=== PATIENT | male | born 1995 | race Caucasian/White ===

== ENCOUNTER 2016-11-22 11:57 | Observation (INO) | payer OTHER ==
[2016-11-22] MEDS ORDERED: ONDANSETRON 4 MG/2 ML VIAL IVP ONE (12:12)
--- NOTE | 2016-11-22 12:20 | EDPHY ---
H & P Smoking Status: Current every day smoker Time Seen by Provider: 11/22/16 12:07 HPI/ROS: HPI: Jamil King is a 21 yrs, male who presents with Chief Complaint: abdominal pain Location: RLQ Quality: sharp pain Duration: started 3 hours ago Signs and Symptoms: no fever, no chills, no N/V, + loose stools x 2-3, no dysuria, no groin pain, + anorexia, no dysuria, no penile discharge Timing: sudden, constant Severity: 03/06 Context: generally healthy. ate sandwich from [employer] at 0100; was last meal. Modifying Factors: REVIEW OF SYSTEMS: Constitutional: No fever Eyes: No blurred vision Respiratory: No shortness of breath, no cough Cardiovascular: No chest pain Gastrointestinal: No nausea, no vomiting, + diarrhea Genitourinary: No dysuria Extremities: No myalgias Neurologic: No weakness, no numbness Skin: No rashes Hematologic: No bruising, no bleeding (Gianna Culp) Past Medical/Surgical History: generally healthy. (Gianna Culp) Physical Exam: CONSTITUTIONAL: young adult white male, awake and alert, moderate distress, non- toxci appeaing HEENT: Atraumatic and normocephalic, PERRL, EOMI. Tympanic membranes clear. . Oropharynx clear, no exudate and moist pink mucosa. Airway patent. No lymphadenopathy. No meningismus. Cardiovascular: Normal S1/S2, regular rate, regular rhythm, without murmur rub or gallop. PULMONARY/CHEST: Symmetrical and nontender. Clear to auscultation bilaterally Good air movement. No accessory muscle usage. ABDOMEN: Soft, nondistended, RLQ tenderness, no rebound, no guarding, no peritoneal signs, no masses or organomegaly. No CVAT. + Rovsings/Obturator/ Psoas sign EXTREMITIES: 2/2 pulses, no deformities, no clubbing, no cyanosis or edema. NEUROLOGICAL: no focal neuro deficits. GCS 15. SKIN: Warm and dry, no erythema. no rash. Good capillary refill. (Gianna Culp) Constitutional: Initial Vital Signs Temperature (C) 36.8 C 11/22/16 11:58 Heart Rate 80 11/22/16 11:58 Respiratory Rate 16 11/22/16 11:58 Blood Pressure 130/75 H 11/22/16 11:58 O2 Sat (%) 100 11/22/16 11:58 O2 Delivery Mode Room Air Allergies/Adverse Reactions: No Known Allergies Allergy (Unverified 11/22/16 12:01) Medical Decision Making ED Course/Re-evaluation: Lopez score = 4; NPO, IVF, IV Moprhine x 2 wit transient relief called by radiology CT A/P scan shows no appendicitis, + enteritis no leukocytosis and afebrile. concern for inflammatory process especially Chrons given age. ESR added to labs no stool studies able to be obtained while in ER 1:50 PM ED decision to consult for admission, spoke with Dr. Morales, for enteritis, pain control and further work up (Gianna Culp) The patient was evaluated and managed by the physician assistant pressman. I discussed this patient with the physician assistant pressman. My signature indicates that I have reviewed this chart and I agree with the findings and plan of care as documented. I am the primary supervising physician. (Ashley Frankel) Differential Diagnosis: Abdominal pain including but not limited to appendicitis, cholecystitis, gastritis and urinary tract infection. (Gianna Culp) - Data Points Laboratory Results: Laboratory Results 11/22/16 12:15 11/22/16 12:15 Medications Given: Discontinued Medications Sodium Chloride (Ns) 1,000 mls @ 0 mls/hr IV ONCE ONE PRN Reason: Wide Open Stop: 11/22/16 12:25 Last Admin: 11/22/16 12:25 Dose: 1,000 mls Sodium Chloride (Ns) 1,000 mls @ 100 mls/hr IV CONT SOLITARIO Stop: 05/21/17 14:44 Last Admin: 11/22/16 16:52 Dose: 1,000 mls Morphine Sulfate (Morphine) 2 mg IVP EDNOW ONE Stop: 11/22/16 12:13 Last Admin: 11/22/16 12:25 Dose: 2 mg Morphine Sulfate (Morphine) 2 mg IVP EDNOW ONE Stop: 11/22/16 13:32 Last Admin: 11/22/16 13:34 Dose: 2 mg Ondansetron HCl (Zofran) 4 mg IVP EDNOW ONE Stop: 11/22/16 12:13 Last Admin: 11/22/16 12:25 Dose: 4 mg Departure - Departure Disposition: [facility] Acute Condition: Good
[2016-11-22] MEDS ORDERED: NS 1,000 ML IV ONE (12:24)
[2016-11-22 12:29] LABS: % IMMATURE GRANULYOCYTES 0.3 % (0.0-1.1); ABSOLUTE IMMATURE GRANULOCYTES 0.02 10^3/uL (0.00-0.10); ADD DIFF? NO; ADD MORPH? NO; ADD SCAN? NO; ATYPICAL LYMPHOCYTE FLAG 10 (0-99); FRAGMENT RBC FLAG 0 (0-99); HEMATOCRIT 44.6 % (40.0-51.0); HEMOGLOBIN 15.9 g/dL (13.7-17.5); LEFT SHIFT FLG 10 (0-99); LIPEMIA HEMOLYSIS FLAG 90 (0-99); MEAN CELL HEMOGLOBIN 32.6 pg (27.9-34.1); MEAN CELL HEMOGLOBIN CONCENTR. 35.7 g/dL (32.4-36.7); MEAN CELL VOLUME 91.4 fL (81.5-99.8); MEAN PLATELET VOLUME 9.5 fL (8.7-11.7); PLATELET CLUMPS FLAG 0 (0-99); PLATELET COUNT 235 10^3/uL (150-400); RED BLOOD CELL COUNT 4.88 10^6/uL (4.40-6.38); RED CELL DISTRIBUTION WIDTH 12.1 % (11.5-15.2)
[2016-11-22] MEDS ORDERED: NS 1,000 ML IV SCH ×2 (12:30→14:45)
[2016-11-22 12:57] LABS: ALANINE AMINOTRANSFERASE 53 IU/L (21-72); ALBUMIN 4.5 g/dL (3.5-5.0); ALKALINE PHOSPHATASE 83 IU/L (38-126); ANION GAP 17 mEq/L (8-16); ASPARTATE AMINOTRANSFERASE 33 IU/L (17-59); BILIRUBIN,TOTAL 0.8 mg/dL (0.1-1.4); BILIRUBIN-CONJUGATED 0.4 mg/dL (0.0-0.5); BILIRUBIN-UNCONJUGATED 0.4 mg/dL (0.0-1.1); CARBON DIOXIDE 17 mEq/l (22-31); CHLORIDE 105 mEq/L (97-110); CREATININE 1.1 mg/dL (0.7-1.3); GLOMERULAR FILTRATION RATE > 60; GLUCOSE 106 mg/dL (70-100); POTASSIUM 3.6 mEq/L (3.5-5.2); SODIUM 139 mEq/L (134-144); TOTAL PROTEIN 7.7 g/dL (6.3-8.2)
[2016-11-22] MEDS ORDERED: IOPAMIDOL (ISOVUE-300) 100 ML BTL ONE (13:02)
[2016-11-22 14:04] LABS: HEMATOCRIT 44.3 % (40.0-51.0)
[2016-11-22] MEDS ORDERED: ACETAMINOPHEN 325 MG TAB PO PRN (14:37)
[2016-11-22] MEDS ORDERED: ONDANSETRON 4 MG/2 ML VIAL IVP PRN (14:37)
[2016-11-22] MEDS ORDERED: ONDANSETRON DISINTEGRATING 4 MG TAB PO PRN (14:37)
[2016-11-22 15:13] LABS: COLOR YELLOW; LEUKOCYTE ESTERASE,URINE NEGATIVE (NEGATIVE); NITRITE,URINE NEGATIVE (NEGATIVE)
--- NOTE | 2016-11-22 17:36 | GHP ---
[f rep st] HISTORY AND PHYSICAL DATE OF ADMISSION: 11/22/2016 CHIEF COMPLAINT: Abdominal pain. HISTORY OF PRESENT ILLNESS: A healthy 21-year-old male, who was in his normal state of health when he awoke this morning with a terrible right upper quadrant and right lower quadrant pain with precip itated nausea and vomiting. Patient reports several episodes of diarrhea and persistent pain that p rompted his evaluation in the emergency department. He was worried he had appendicitis. The patien t reports no known sick contacts. No new food exposures. No new medications. Denies any subjectiv e fevers or chills. Denies any known blood in his stools. Although he reports he did not look, but severe pain in the right abdomen that is waxing and waning. Sometimes at a severity of 10. PAST MEDICAL HISTORY: None. SOCIAL HISTORY: Intermittent tobacco when he drinks alcohol. Average alcohol consumption a couple drinks 4-5 times a week. Occasionally smokes marijuana. Denies other drugs. FAMILY HISTORY: Negative for any inflammatory bowel conditions. REVIEW OF SYSTEMS: 10-point review of systems is negative with the exception of that reported in th e HPI. PHYSICAL EXAMINATION: VITAL SIGNS: Blood pressure 114/65, heart rate 77, respiratory rate 17, 95% on room air. GENERAL: Very healthy-appearing young male in mild distress. HEENT: Notable for dry mucous membranes. EYE: Negative for any icterus. CARDIAC: Patient is regular rate and rhythm. No murmurs, gallops, or rubs. PULMONARY: Clear to auscultation bilaterally. GASTROINTESTINAL: Po sitive bowel sounds. Abdomen is soft and tender in the right upper and right lower quadrants. No r ebound or guarding. MUSCULOSKELETAL: Negative for any lower extremity edema. SKIN: Negative for any rashes. NEUROLOGIC: He is alert and oriented x3. PSYCHIATRIC: He is pleasant and cooperative on interview and examination. DATA: CT of the abdomen shows distal ileal inflammation consistent with enteritis. LABORATORY: White count is 7.9, hematocrit 44.3, platelets of 235. Urinalysis is negative for infe ction. Anion gap is 17. ASSESSMENT AND PLAN: This is a 21-year-old male, presenting with abdominal pain. 1. Acute ileitis, potentially either infectious versus inflammatory. We will send stool culture. Make the patient clear liquids, advance as tolerated. Diet with IV fluids, IV pain medications and IV nausea medications. We will await stool results before empirically treating. 2. Metabolic acidosis. Presumed starvation ketosis. Patient does have ketones in his urine. Will aggressively fluid resuscitate and follow his acid base status in the morning. 3. Prophylaxis with Lovenox. DIET: Clear liquids, advance as tolerate. DISPOSITION: I expect in less than 2 midnights if the patient responds well to fluid resuscitation and does not have a pathogen requiring inpatient care. I have discussed the case with the emergency room physician. Patient will be triaged to the medical-surgical floor for observation and fluid re suscitation. /[id number]/MODL
[2016-11-23 03:25] VITALS: TEMP 97.6
[2016-11-23 05:36] LABS: % IMMATURE GRANULYOCYTES 0.1 % (0.0-1.1); ABSOLUTE IMMATURE GRANULOCYTES 0.01 10^3/uL (0.00-0.10); ADD DIFF? NO; ADD MORPH? NO; ADD SCAN? NO; ATYPICAL LYMPHOCYTE FLAG 10 (0-99); FRAGMENT RBC FLAG 0 (0-99); HEMATOCRIT 40.9 % (40.0-51.0); HEMOGLOBIN 14.3 g/dL (13.7-17.5); LEFT SHIFT FLG 0 (0-99); LIPEMIA HEMOLYSIS FLAG 90 (0-99); MEAN CELL HEMOGLOBIN 32.9 pg (27.9-34.1); MEAN PLATELET VOLUME 9.6 fL (8.7-11.7); PLATELET CLUMPS FLAG 0 (0-99); PLATELET COUNT 177 10^3/uL (150-400); RED BLOOD CELL COUNT 4.35 10^6/uL (4.40-6.38); RED CELL DISTRIBUTION WIDTH 12.2 % (11.5-15.2)
[2016-11-23 05:51] LABS: POTASSIUM 4.1 mEq/L (3.5-5.2)
[2016-11-23 05:52] LABS: ANION GAP 9 mEq/L (8-16); CALCIUM 8.9 mg/dL (8.5-10.4); CARBON DIOXIDE 20 mEq/l (22-31); CHLORIDE 108 mEq/L (97-110); CREATININE 1.1 mg/dL (0.7-1.3); GLOMERULAR FILTRATION RATE > 60; GLUCOSE 77 mg/dL (70-100); SODIUM 137 mEq/L (134-144)
--- NOTE | 2016-11-23 08:55 | HOSPPROG ---
Hospitalist Progress Note Assessment/Plan: Patient is a 21-year-old male who presented to the emergency room with right upper quadrant pain and nausea with associated vomiting. Today is my 1st encounter with the patient. Chart reviewed. * Gastroenteritis patient's GI pathogen grew out Plesiomonas shigelloides vibrio cholera this occurred after eating raw oysters he is feeling well today explained to him the health dept will be f/u with him * metabolic acidosis much improved * plan. Advance diet, can DC home today. Told to avoid eating raw fish Subjective: Jamil is feeling well. Pain has completely resolved. Objective: Vital Signs Temp Pulse Resp BP Pulse Ox 36.4 C 56 L 17 114/67 94 11/23/16 03:24 11/23/16 03:24 11/23/16 03:24 11/23/16 03:24 11/23/16 03:24 Microbiology 11/22/16 17:40 Gastrointestinal Tract Panel (PCR) - Final Stool Plesiomonas Shigelloides Vibrio Cholera Laboratory Results 11/23/16 05:25 11/23/16 05:25 11/22/16 11/23/16 11/24/16 05:59 05:59 05:59 Intake Total 2550 Balance 2550 - Physical Exam Constitutional: no apparent distress, appears nourished, not in pain Eyes: PERRL Ears, Nose, Mouth, Throat: hearing normal Respiratory: no respiratory distress Gastrointestinal: normoactive bowel sounds Skin: warm Musculoskeletal: full muscle strength Neurologic: AAOx3 Psychiatric: interacting appropriately ICD10 Worksheet Patient Problems: Problems Problem Status Onset Gastroenteritis Acute - ICD10 Problem Qualifiers (1) Gastroenteritis
[2016-11-23] MEDS ORDERED: ENOXAPARIN 40 MG/0.4 ML SYR SC SCH (09:00)
[2016-11-23 09:07] VITALS: BP 113/76; PULSE 72; RESP 16; O2SAT 96
--- NOTE | 2016-11-23 13:05 | GDS ---
[f rep st] DISCHARGE SUMMARY DISCHARGE DIAGNOSES: 1. Gastroenteritis. 2. Metabolic acidosis. HISTORY OF PRESENT ILLNESS: Briefly, the patient is a 21-year-old male who was in his normal state of health when he awoke in the morning with terrible right upper quadrant pain and right lower quadrant pain with associated nausea and vomiting. He had several episodes of diarrhea. He came to the ER and had a CT of the abdomen which showed distal ileal inflammation consistent with enteritis. A GI pathogen was sent out which grew out Plesiomonas shigelloides. In further talking with the patient, he had been eating raw oysters. The Health Department will follow up with him. His symptoms have completely resolved today. He is eating and drinking well. He has had no further bouts of diarrhea. He has no longer any type of abdominal pain. CONDITION AT DISCHARGE: Stable. Blood pressure is 114/67, pulse is 56, temperature is 36.4 Celsius, O2 saturation on room air 94%. MEDICATIONS AT DISCHARGE: Please see the EMR. DISCHARGE INSTRUCTIONS: 1. Recommend that he avoid eating raw fish. 2. If he develops fever, chills, worsening abdominal pain, or more than 5 episodes of diarrhea a day, to return to the ER. 3. Can return to work, once diarrhea completely resolves. /[id number]/MODL MTDD
== END 2016-11-23 10:49 | disposition home or self-care (01) ==
LOC: INTOOBSV 13:54 → F3E 15:18
PROVIDERS: ADMIT Hospitalist; ATTEND Internal Medicine
DX: K52.9 Noninfective gastroenteritis and colitis, unspecified (principal); E87.2 Acidosis
CPT/HCPCS: 74177; G0378; J2405; Q9967

== ENCOUNTER 2016-11-27 04:10 | Emergency (ER) | payer OTHER ==
[2016-11-27] MEDS ORDERED: ONDANSETRON 4 MG/2 ML VIAL ONE (04:24)
[2016-11-27] MEDS ORDERED: LIDOCAINE 1% 100 MG in NS 100 ML IV ONE (05:22)
[2016-11-27] MEDS ORDERED: NS 1,000 ML IV ONE (05:22)
[2016-11-27] MEDS ORDERED: HALOPERIDOL LACT 5 MG/ML INJ IVP ONE (05:22)
[2016-11-27] MEDS ORDERED: FAMOTIDINE 20 MG TAB PO ONE (05:22)
[2016-11-27] MEDS ORDERED: METOCLOPRAMIDE 10 MG/2 ML VIAL IVP ONE (05:22)
[2016-11-27] MEDS ORDERED: ONDANSETRON 4 MG/2 ML VIAL IVP ONE (05:24)
[2016-11-27 05:28] LABS: % IMMATURE GRANULYOCYTES 0.3 % (0.0-1.1); ABSOLUTE IMMATURE GRANULOCYTES 0.03 10^3/uL (0.00-0.10); ADD DIFF? NO; ADD MORPH? NO; ADD SCAN? NO; ATYPICAL LYMPHOCYTE FLAG 30 (0-99); FRAGMENT RBC FLAG 0 (0-99); HEMATOCRIT 48.2 % (40.0-51.0); HEMOGLOBIN 17.3 g/dL (13.7-17.5); LEFT SHIFT FLG 10 (0-99); LIPEMIA HEMOLYSIS FLAG 90 (0-99); MEAN CELL HEMOGLOBIN 32.3 pg (27.9-34.1); MEAN CELL HEMOGLOBIN CONCENTR. 35.9 g/dL (32.4-36.7); MEAN CELL VOLUME 90.1 fL (81.5-99.8); MEAN PLATELET VOLUME 10.3 fL (8.7-11.7); PLATELET CLUMPS FLAG 60 (0-99); PLATELET COUNT 196 10^3/uL (150-400); RED BLOOD CELL COUNT 5.35 10^6/uL (4.40-6.38)
[2016-11-27] MEDS ORDERED: FAMOTIDINE 20 MG/2 ML SDV ONE (05:37)
[2016-11-27 05:38] LABS: ALANINE AMINOTRANSFERASE 45 IU/L (21-72); ALBUMIN 4.7 g/dL (3.5-5.0); ALKALINE PHOSPHATASE 99 IU/L (38-126); ANION GAP 19 mEq/L (8-16); ASPARTATE AMINOTRANSFERASE 32 IU/L (17-59); BILIRUBIN,TOTAL 1.3 mg/dL (0.1-1.4); BILIRUBIN-CONJUGATED 0.5 mg/dL (0.0-0.5); BILIRUBIN-UNCONJUGATED 0.8 mg/dL (0.0-1.1); CALCIUM 10.1 mg/dL (8.5-10.4); CARBON DIOXIDE 18 mEq/l (22-31); CHLORIDE 104 mEq/L (97-110); CREATININE 1.1 mg/dL (0.7-1.3); GLOMERULAR FILTRATION RATE > 60; GLUCOSE 103 mg/dL (70-100); POTASSIUM 3.8 mEq/L (3.5-5.2); SODIUM 141 mEq/L (134-144)
[2016-11-27] MEDS ORDERED: FAMOTIDINE 20 MG/2 ML SDV IVP ONE (05:40)
[2016-11-27 05:59] VITALS: TEMP 97.5
--- NOTE | 2016-11-27 06:18 | EDPHY ---
H & P Stated Complaint: N and V and D abd pain since 2229, recent d/c for enteritis Time Seen by Provider: 11/27/16 05:13 HPI/ROS: HPI The patient presents with nausea, vomiting, abdominal pain, diarrhea which all began at about 10:00 p.m. tonight. He has had about 3 episodes of nonbloody nonbilious emesis. His abdominal pain is on his right side and is sharp and so comes in waves. He has had 30-40 episodes of watery diarrhea which have eventually become bloody. He had a few beers earlier this evening. He denies any current marijuana use. On November 22, he was admitted to the hospital for enteritis. His stool culture grew out p. shigelloides and vibrio perihemolyticus. Since he left the hospital he has been completely asymptomatic until tonight. This pain feels identical to his presentation on November 22. REVIEW OF SYSTEMS Constitutional: No fever, no chills. Eyes: No discharge. ENT: No sore throat. Cardiovascular: No chest pain, no palpitations. Respiratory: No cough, no shortness of breath. Gastrointestinal: See HPI Genitourinary: No hematuria. Musculoskeletal: No back pain. Skin: No rashes. Neurological: No headache. PMHx: Recent episode of enteritis Soc Hx: Drinks alcohol PHYSICAL General Appearance: Alert, uncomfortable appearing Eyes: Pupils equal and round no pallor or injection ENT, Mouth: Mucous membranes moist Respiratory: There are no retractions, lungs are clear to auscultation Cardiovascular: Regular rate and rhythm Gastrointestinal: Abdomen is soft with tenderness in the right upper and right lower quadrants Neurological: A&O, moves all extremities Skin: Warm and dry, no rashes Musculoskeletal: Neck is supple non tender Extremities: symmetrical, full range of motion Psychiatric: Patient is oriented X 3, there is no agitation Source: Patient, Old records - Medical/Surgical History Hx Asthma: No Hx Chronic Respiratory Disease: No Hx Diabetes: No Hx Cardiac Disease: No Hx Renal Disease: No Hx Cirrhosis: No Hx Alcoholism: No Hx HIV/AIDS: No Hx Splenectomy or Spleen Trauma: No Other PMH: enteritis - Social History Smoking Status: Current some day smoker Constitutional: Initial Vital Signs Temperature (C) 36.4 C 11/27/16 04:17 Heart Rate 86 11/27/16 04:17 Respiratory Rate 20 11/27/16 04:17 Blood Pressure 123/94 H 11/27/16 04:17 O2 Sat (%) 99 11/27/16 04:17 O2 Delivery Mode Room Air Allergies/Adverse Reactions: No Known Allergies Allergy (Unverified 11/22/16 12:01) Home Medications: Medication Instructions Recorded Ciprofloxacin [Cipro] 500 mg PO BID #14 tab 11/27/16 Ondansetron Odt [Zofran Odt 4 mg 4 mg PO Q4 PRN #10 tab 11/27/16 (*)] Medical Decision Making Differential Diagnosis: This is a 21-year-old male who presents from home with several hours of right- sided abdominal pain associated with nausea, vomiting, diarrhea. About a week ago he was diagnosed with enteritis after a similar presentation. CT scan was obtained demonstrating this and stool cultures grew out plesiomonas shigelloids and vibrio barb hemolyticus. Differential diagnosis includes gastroenteritis, recurrent infection, appendicitis. In the ER, IV was established, patient was given medication for nausea, vomiting and his pain. He was given IV fluids. He felt much better after these treatments. He was able to tolerate p.o.. Labs were checked and did reveal metabolic acidosis, similar to prior visit. His white blood cell count was slightly elevated. I consulted with Infectious Disease, Dr. Guerra. We discussed the patient's case and recent laboratory testing. We plan to start him on ciprofloxacin 500 mg twice daily for 7 days to treat for his infection given his ongoing symptoms. He is feeling well enough to go home and will be discharged. I have given him information for infectious disease follow-up. - Data Points Laboratory Results: Laboratory Results 11/27/16 04:44 11/27/16 04:44 11/27/16 11/27/16 04:44 04:44 WBC 11.73 10^3/uL H 10^3/uL (3.80-9.50) RBC 5.35 10^6/uL 10^6/uL (4.40-6.38) Hgb 17.3 g/dL g/dL (13.7-17.5) Hct 48.2 % % (40.0-51.0) MCV 90.1 fL fL (81.5-99.8) MCH 32.3 pg pg (27.9-34.1) MCHC 35.9 g/dL g/dL (32.4-36.7) RDW 12.0 % % (11.5-15.2) Plt Count 196 10^3/uL 10^3/uL (150-400) MPV 10.3 fL fL (8.7-11.7) Neut % (Auto) 62.5 % % (39.3-74.2) Lymph % (Auto) 24.0 % % (15.0-45.0) Toole % (Auto) 10.9 % % (4.5-13.0) Eos % (Auto) 2.0 % % (0.6-7.6) Baso % (Auto) 0.3 % % (0.3-1.7) Nucleat RBC Rel Count 0.0 % % (0.0-0.2) Absolute Neuts (auto) 7.33 10^3/uL H 10^3/uL (1.70-6.50) Absolute Lymphs (auto) 2.82 10^3/uL 10^3/uL (1.00-3.00) Absolute Monos (auto) 1.28 10^3/uL H 10^3/uL (0.30-0.80) Absolute Eos (auto) 0.24 10^3/uL 10^3/uL (0.03-0.40) Absolute Basos (auto) 0.03 10^3/uL 10^3/uL (0.02-0.10) Absolute Nucleated RBC 0.00 10^3/uL 10^3/uL (0-0.01) Immature Gran % 0.3 % % (0.0-1.1) Immature Gran # 0.03 10^3/uL 10^3/uL (0.00-0.10) Sodium 141 mEq/L mEq/L (134-144) Potassium 3.8 mEq/L mEq/L (3.5-5.2) Chloride 104 mEq/L mEq/L (97-110) Carbon Dioxide 18 mEq/l L mEq/l (22-31) Anion Gap 19 mEq/L H mEq/L (8-16) BUN 15 mg/dL mg/dL (7-23) Creatinine 1.1 mg/dL mg/dL (0.7-1.3) Estimated GFR > 60 Glucose 103 mg/dL H mg/dL (70-100) Calcium 10.1 mg/dL mg/dL (8.5-10.4) Total Bilirubin 1.3 mg/dL mg/dL (0.1-1.4) Conjugated Bilirubin 0.5 mg/dL mg/dL (0.0-0.5) Unconjugated Bilirubin 0.8 mg/dL mg/dL (0.0-1.1) AST 32 IU/L IU/L (17-59) ALT 45 IU/L IU/L (21-72) Alkaline Phosphatase 99 IU/L IU/L (38-126) Total Protein 8.0 g/dL g/dL (6.3-8.2) Albumin 4.7 g/dL g/dL (3.5-5.0) Lipase 145.0 IU/L IU/L (23-300) Medications Given: Discontinued Medications Famotidine (Pepcid) 20 mg PO EDNOW ONE Stop: 11/27/16 05:23 Last Admin: 11/27/16 05:40 Dose: Not Given Famotidine (Pepcid) 20 mg IVP EDNOW ONE Stop: 11/27/16 05:41 Last Admin: 11/27/16 05:41 Dose: 20 mg Haloperidol Lactate (Haldol Injection) 2.5 mg IVP EDNOW ONE Stop: 11/27/16 05:23 Last Admin: 11/27/16 05:39 Dose: 2.5 mg Sodium Chloride (Ns) 1,000 mls @ 0 mls/hr IV ONCE ONE; Wide Open PRN Reason: Protocol Stop: 11/27/16 05:23 Last Admin: 11/27/16 05:39 Dose: 1,000 mls Lidocaine HCl 100 mg/ Sodium (Chloride) 110 mls @ 600 mls/hr IV EDNOW ONE Stop: 11/27/16 05:32 Last Admin: 11/27/16 05:50 Dose: 110 mls Metoclopramide HCl (Reglan Injection) 10 mg IVP EDNOW ONE Stop: 11/27/16 05:23 Last Admin: 11/27/16 05:39 Dose: 10 mg Ondansetron HCl (Zofran) 4 mg IVP EDNOW ONE Stop: 11/27/16 05:25 Last Admin: 11/27/16 05:00 Dose: 4 mg Departure - Departure Disposition: Home, Routine, Self-Care Clinical Impression: Enteritis, 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 Please return to the emergency room if your worse in any way. Referrals: Kallie Guerra MD [Medical Doctor] - As per Instructions Prescriptions: Ciprofloxacin [Cipro] 500 mg PO BID #14 tab Ondansetron Odt [Zofran Odt 4 mg (*)] 4 mg PO Q4 PRN #10 tab PRN Reason: Nausea/Vomiting With Chemo
[2016-11-27] MEDS ORDERED: CIPROFLOXACIN 500 MG TAB PO ONE (06:39)
[2016-11-27] MEDS ORDERED: ONDANSETRON 4MG PREPACK#2 BTL TAKEHOME ONE (06:39)
[2016-11-27 06:49] VITALS: BP 145/75; PULSE 99; RESP 16; O2SAT 98
== END 2016-11-27 06:48 | disposition home or self-care (01) ==
DX: A05.3 Foodborne Vibrio parahaemolyticus intoxication (principal); F17.200 Nicotine dependence, unspecified, uncomplicated; E86.9 Volume depletion, unspecified
CPT/HCPCS: 96374; J2405; J2765